=== PATIENT | male | born 1970 | race Caucasian/White ===

== ENCOUNTER 2016-12-02 12:56 | Emergency (ER) | payer OTHER ==
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
[2016-12-02 13:27] LABS: BASOPHIL # 0.1 K/uL (0.0-0.2); BASOPHIL % 0.4 %; EOSINOPHIL # 0.1 K/uL (0.0-0.5); EOSINOPHIL % 0.7 %; HEMATOCRIT 36.7 % (37.0-53.0); IMMATURE GRANULOCYTE # 0.1 K/uL (0.0-0.3); IMMATURE GRANULOCYTE % 0.5 %; LYMPHOCYTE # 1.6 K/uL (0.8-4.0); LYMPHOCYTE % 9.7 %; MCHC 35.4 gm/dL (32.0-36.5); MCV 87.4 fl (83.0-98.0); MONOCYTE # 1.3 K/uL (0.0-1.0); MONOCYTE % 7.6 %; MPV 9.6 fl (9.4-12.4); NEUTROPHIL # (ANC) 13.7 K/uL (1.4-9.0); NEUTROPHIL % 81.1 %; NRBC % 0 /100WBC (0-0.00); PLATELET COUNT 205 K/uL (150-450); RDW-CV 12.2 % (11.9-14.6)
[2016-12-02 13:28] LABS: WBC 16.9 K/uL (4.0-11.0)
[2016-12-02 13:36] LABS: INR - (THERAPEUTIC) 1.08 (0.92-1.07); PROTIME 11.4 SECONDS (9.8-11.4); PTT 25 SECONDS (25-32)
[2016-12-02 13:38] LABS: BICARBONATE 19.7 mmol/L (18.0-23.0); PCO2 32 mmHg (35-45); PO2 27 mmHg (80-90)
[2016-12-02 13:39] LABS: SODIUM 140 mEq/L (135-145)
[2016-12-02 13:42] LABS: BLOOD UREA NITROGEN 14 mg/dL (6-24); CHLORIDE 110 mMol/L (96-110); CREATININE 1.2 mg/dL (0.6-1.3); ESTIMATED GFR (MDRD EQUATION) > 60; POTASSIUM 3.5 mMol/L (3.7-5.1)
[2016-12-02 13:43] LABS: ANION GAP 12.5 (10.0-19.0)
[2016-12-02 15:51] LABS: BILIRUBIN URINE NEGATIVE (NEGATIVE); BLOOD URINE NEGATIVE /UL (NEGATIVE); GLUCOSE URINE NEGATIVE (NEGATIVE); KETONE URINE 50 mg/dL (NEGATIVE); LEUKOCYTES URINE NEGATIVE /UL (NEGATIVE); NITRITE URINE NEGATIVE (NEGATIVE); PROTEIN URINE NEGATIVE (NEGATIVE); SPEC GRAVITY URINE 1.015 (1.003-1.035); UROBILINOGEN URINE NORMAL (NORMAL)
[2016-12-02 15:52] LABS: COLOR URINE YELLOW (YELLOW); TURBIDITY URINE CLEAR (CLEAR)
== END 2016-12-02 15:37 | disposition disaster alternative care site (69) ==
LOC: GACC 12:56
PROVIDERS: Emergency Medicine
DX: S05.42XA Penetrating wound of orbit with or without foreign body, left eye, initial encounter (principal); S05.41XA Penetrating wound of orbit with or without foreign body, right eye, initial encounter; S11.90XA Unspecified open wound of unspecified part of neck, initial encounter; S01.20XA Unspecified open wound of nose, initial encounter; Z23 Encounter for immunization; W33.01XA Accidental discharge of shotgun, initial encounter
CPT/HCPCS: G0480; J0690; J2250; J3010; Q9967

== ENCOUNTER → 2016-12-02 | Outpatient (CLI) | payer OTHER | END | disposition disaster alternative care site (69) | LOC: GAIR 12:32 | DX: S01.83XA Puncture wound without foreign body of other part of head, initial encounter (principal); S11.93XA Puncture wound without foreign body of unspecified part of neck, initial encounter; S21.139A Puncture wound without foreign body of unspecified front wall of thorax without penetration into thoracic cavity, initial encounter; W33.01XA Accidental discharge of shotgun, initial encounter | CPT/HCPCS: A0431; A0436 ==

== ENCOUNTER → 2016-12-02 | Outpatient (CLI) | payer OTHER | END | disposition disaster alternative care site (69) | LOC: GAMB 15:53 | DX: S09.93XA Unspecified injury of face, initial encounter (principal); G89.11 Acute pain due to trauma; S01.83XA Puncture wound without foreign body of other part of head, initial encounter; W34.00XA Accidental discharge from unspecified firearms or gun, initial encounter | CPT/HCPCS: A0425; A0428 ==